=== PATIENT | female | born 1950 | race Caucasian/White ===

== ENCOUNTER → 2016-06-18 | Outpatient (CLI) | payer MEDICARE, OTHER ==
--- NOTE | 2016-06-18 15:37 | RADIOLOGY REPORT PS360 ---
CHEST(2 VIEWS-NOT PORTABLE) HISTORY: Follow-up pneumonia S/P RLL PNEUMONIA, COPD ORDERING PHYSICIAN: Joey Glass MD PATIENT AGE: 66 years COMPARISON: 05/07/2016 FINDINGS: The cardiomediastinal silhouette and pulmonary vascularity are within normal limits. Hyperinflation with attenuation of the peripheral pulmonary vessels consistent COPD again noted. Right basilar infiltrate has improved. There is a small parenchymal opacity now noted in the left upper lobe. While this could be related to an area of scarring, one cannot exclude a developing nodule. Follow-up recommended. If this persists then, CT may be needed for further evaluation.. No acute bony abnormalities. IMPRESSION: 1. COPD with improved right lower lobe infiltrate. 2. Nonspecific irregular parenchymal opacity left upper lobe. Differential diagnosis includes fibrotic change versus developing nodule. Consider follow-up.
== END ==
LOC: RAD 14:28
DX: J44.9 Chronic obstructive pulmonary disease, unspecified (principal); Z87.01 Personal history of pneumonia (recurrent)

== ENCOUNTER 2017-05-02 15:25 | Inpatient (IN) | payer MEDICARE, OTHER ==
[~2017-05-02] VITALS: Ht 162.6 cm; Wt 54.5 kg
--- OUTSIDE RECORDS SUMMARY | 2017-05-02 15:27 | External Medical Summary Rpt | CCD ---
Author Author , AMBER CLARK Address Unknown Phone [email or web address] Purpose Continuity of Care Document - 04-18-2017 through 2016 Problems Code Diagnosis DOS Provider Status Z01.818 ENCOUNTER FOR OTHER PREPROCEDUR AL EXAMINATION Results Labs Lab Lab Date Result Refere Interp Status Commen Order Detail nces retati t Range on CBC w auto diff (04-18-2017 15:53) Blood = 12.8 4.8-10. complet leukocy 017 K/MM3 8 ed lucinda 15:53 count (number /volume ) Automat = 12.6 11.5-17 complet ed 017 % .5 ed erythro 15:53 cyte distrib ution width Red = 5.13 4.2-5.4 complet blood 017 M/mm3 ed cell 15:53 count Blood = 436 142-424 complet platele 017 K/mm3 ed t count 15:53 Automat = 7.5 7.4-10. complet ed 017 fl 4 ed blood 15:53 platele t mean volume neel [place] % = 5.3 % 1.7-9.3 complet 017 ed 15:53 Absolut = 0.7 0.1-1.0 complet e 017 K/mm3 ed monocyt 15:53 e count Automat = 87.6 82.2-97 complet ed 017 fl .8 ed erythro 15:53 cyte mean corpusc ular v Automat = 33.3 31.8-35 complet ed 017 g/dl .4 ed erythro 15:53 cyte mean corpusc ular h Mean = 29.1 27-31.2 complet corpusc 017 pg ed ular 15:53 hemoglo bin (MCH) determ Lymphoc = 20.7 10-50.0 complet yte 017 % ed count, 15:53 blood, automat ed Absolut 1127-2 = 2.6 0.7-4.5 complet e 017 K/mm3 ed lymphoc 15:53 yte count Blood = 14.9 12.2-16 complet hemoglo 017 g/dL .2 ed bin 15:53 measure ment (mass/v olum Blood = 44.9 37.0-47 complet hematoc 017 % .0 ed rit 15:53 (volume fractio n) Granulo = 70.7 37.0-80 complet cyte 017 % .0 ed percent 15:53 age Blood = 9.0 1.8-7.8 complet granulo 017 K/mm3 ed cytes 15:53 automat ed count (numb Automat = 2.2 % 0.1-12. complet ed 017 0 ed blood 15:53 eosinop hils/10 0 leukocy t Automat = 0.3 0.0-0.4 complet ed 017 K/mm3 ed blood 15:53 eosinop hil count Baso % = 1.2 % 0.1-2.0 complet 017 ed 15:53 Automat = 0.2 0-0.2 complet ed 017 K/MM3 ed blood 15:53 basophi l count (count/ vo Basic metabolic panel (04-18-2017 15:53) Serum = 139 136-145 complet sodium 017 mmoL/L ed measure 15:53 ment Serum = 5.5 3.5-5.1 complet potassi 017 mmoL/L ed um 15:53 measure ment Serum = 86 74-106 complet or 017 mg/dL ed plasma 15:53 glucose measure ment (mas Estimat = 71 59- complet ed 017 ML/MIN ed glomeru 15:53 lar filtrat ion rate (GF Comment: REFERENCE RANGE: >60 ML/MIN/1.73 SQUARE METERS Comment: If this patient is -Canadian, then multiply the Comment: result by 1.210. Serum = 0.8 0.55-1. complet or 017 mg/dL 02 ed plasma 15:53 creatin ine measure ment ( Carbon 11-27-2 = 27 21.0-32 complet dioxide 017 mmoL/L .0 ed 15:53 measure ment Serum 2 = 102 98-107 complet or 017 mmoL/L ed plasma 15:53 chlorid e measure ment (mo Serum 2 = 10.4 8.5-10. complet or 017 mg/dL 1 ed plasma 15:53 calcium measure ment (mas Serum 2 = 12 7-18 complet or 017 mg/dL ed plasma 15:53 urea nitroge n measure men
--- OUTSIDE RECORDS SUMMARY | 2017-05-02 15:27 | External Medical Summary Rpt | CCD ---
Author Author , AMBER CLARK Address Unknown Phone [email or web address] Purpose Continuity of Care Document - 04-18-2017 [...] blood 15:53 platele t mean volume neel [place] % = 5.3 % 1.7-9.3 complet 017 [...] SQUARE METERS Comment: If this patient is -[place]i, then multiply the Comment: result by 1.210. [...]
--- OUTSIDE RECORDS SUMMARY | 2017-05-02 15:27 | External Medical Summary Rpt | CCD ---
Author Author , OTILIO CLARK Address Unknown Phone [email or web address] Immunization Name Date Rout CVX Reac Dose Comm Prov Is Faci e tion ent ider Refu lity Give sed n PPV2 09-1 Intr 33 0.5 Hist [facility] No [facility] 3 9-20 amus mL oric ART5 ART5 17 cula al 91 91 r Info rmat ion - Sour ce Unsp ecif ied Infl 09-0 Intr 135 0.5 Hist [facility] No [facility] uenz 8-20 amus mL oric ART5 ART5 a, 16 cula al 91 91 High r Info rmat Dose ion - Sour ce Unsp ecif ied PCV1 09-0 Intr 133 0.5 Hist [facility] No [facility] 3 8-20 amus mL oric ART5 ART5 16 cula al 91 91 r Info rmat ion - Sour ce Unsp ecif ied
--- OUTSIDE RECORDS SUMMARY | 2017-05-02 15:27 | External Medical Summary Rpt | CCD ---
Author Author [employer] Address Unknown Phone Unavailable Purpose Continuity of Care Document - through 2016
--- OUTSIDE RECORDS SUMMARY | 2017-05-02 15:27 | External Medical Summary Rpt | CCD ---
Author Author , OTILIO CLARK Address Unknown Phone [email or web address] Immunization Name Date Rout CVX Reac Dose [...]
--- NOTE | 2017-05-02 16:18 | PHARMACY CLINIC NOTE ---
See Addendum Patient Demographics Patient Demographics Admission date: 05/02/17 Date: 05/02/17 Time: 1616 Allergies Coded Allergies: Penicillins (Severe, TONGUE SWELLS 05/02/17) doxycycline (Mild, I-RASH 05/02/17) HEIGHT- FT: 5 IN: 4.00 VTE General Information Disclaimer The following section includes nursing documentation that has been pulled in for pharmacy review. VTE prophylaxis NQF [id number] VTE prophylaxis ordered? Yes Type of prophylaxis/treatment: Lovenox at 1617
[2017-05-02] MEDS ORDERED: METFORMIN1000 MG PO (16:30)
[2017-05-02] MEDS ORDERED: GEMFIBROZIL600 MG PO (16:31)
[2017-05-02] MEDS ORDERED: LEVOTHYROXIN0.075 M1 PO (16:32)
[2017-05-02] MEDS ORDERED: VENTOLIN H0.09 MG/AC IH (16:33)
[2017-05-02] MEDS ORDERED: CRESTOR10 MG PO (16:33)
[2017-05-02 16:35] VITALS: BP 139/45
[2017-05-02 17:05] VITALS: BP 139/45
[2017-05-02 17:19] LABS: LYMPH # 0.5 K/mm3 (0.7-4.5); LYMPH % 6.5 % (10-50.0)
[2017-05-02 18:35] LABS: NEUTROPHILS 59 % (42-76)
[2017-05-02 19:35] VITALS: BP 124/65
[2017-05-02 20:15] VITALS: BP 124/65
[2017-05-03] VITALS (7 sets, daily range): BP systolic 116–142; BP diastolic 36–76
--- NOTE | 2017-05-03 08:09 | HISTORY AND PHYSICAL REPORT ---
Demographics: Admit date: 05/02/17 Chief complaint: Shortness of breath, cough PRIMARY DIAGNOSIS: COPD EXACERBATION Allergies: Coded Allergies: Penicillins (Severe, TONGUE SWELLS 05/02/17) doxycycline (Mild, I-RASH 05/02/17) History of present illness: History of present illness: 67 year old female with a significant history of COPD was seen at PCP office for cough and shortness of breath. She denies any other ENT symptoms. No fevers. States symptoms have increased over the last week. She was noted to be mildly hypoxic with abnormal lung exam. Patient was direct admitted to acute care for further evaluation. Upon admission, oxygen saturations were noted at 88% RA. CXR showed right upper and right middle lobe pneumonia, as well as a small effusion. Patient was able to produce a sputum sample which is pending. WBC was normal. Creatinine was elevated at 1.6. IV antibiotics, nebulizer treatments and steroids were ordered. Past medical history: Family HX Diabetes Yes CAD No Hypertension No Hyperlipidemia No Cancer No TB No Immunization HX DT/Tetanus Unknown Flu 2016-SN Pneumonia Received In Past TB Test in last year No General CAD? No Angina: No [place]: No Hypertension? No Hyperlipidemia? Yes CHF? No DVT? No PE? No COPD? Yes Asthma? No Anemia? No GERD? No Gastric ulcers? No GI Bleed? No Hernia? No Thyroid Problems? Yes Hypothyroidism? Yes CVA? No Seizures? No Diabetes? Yes Insulin Dependent: No Insulin Pump: No Home FSBS? Yes Renal Insuffiency? No UTI? No Stones? Yes BPH? No GB Disease: No Nephritic Syndrome? No Asplenia? No Hepatitis? No Sickle Cell Disease? No Arthritis? No Migraines? No Cataracts? No Glaucoma? No MRSA? No HIV? No TB? No Anxiety? No Depression? No Cancer? No More? No Past Surgical HX Previous Surgery?Y Hysterectomy-Total Current home meds: Reported Medications METFORMIN HCL (Metformin) 1,000 MG PO BID Gemfibrozil (GEMFIBROZIL 600MG) 600 MG PO DAILY Levothyroxine Sodium (Levothyroxine 0.075MG) 0.075 MG PO DAILY ALBUTEROL (Ventolin Hfa) 1 PUFF IH Q6H6 Rosuvastatin Calcium (Crestor) 10 MG PO QHS Social Hx: Smoking HX Tobacco Yes Type Cigarettes Packs/day 1 1/2 - 2 PACKS Are you/the child exposed to second-hand smoke: No Alcohol Alcohol: No Hx of Drug Use Drug Use? No Patient's support system is good Review of systems: Constitutional malaise, weakness. No: chills, diaphoresis, fever. Eyes No: no symptoms reported. Ears, Nose, Mouth, Throat No no symptoms reported Respiratory see HPI. Cardiovascular No no symptoms reported Gastrointestinal/Abdominal No no symptoms reported Genitourinary No: no symptoms reported. Musculoskeletal No: no symptoms reported. Skin No: no symptoms reported. Neurological No: no symptoms reported. Psychiatric No: no symptoms reported. Exam: Lab data for last 24 hours: Laboratory Tests 05/03/17 0634: POC Glucose 150 H 05/02/17 2046: POC Glucose 155 H 05/02/17 1730: POC Glucose 168 H 05/02/17 1652: Sodium 133 L, Potassium 4.5, Chloride 97 L, Carbon Dioxide 21 L, BUN 29 H, Creatinine 1.6 H, Estimated Creat Clear 29 L, Estimated GFR (MDRD) 32 L, Glucose 145 H, Calcium 10.2 H, WBC 7.7, RBC 4.84, Hgb 14.0, Hct 43.0, MCV 88.8 , RDW 13.0, Plt Count 380, MPV 8.7, Gran % 88.8 H, Gran # 6.9, Total Counted 100, Lymphocytes % 6.5 L, Monocytes % 2.8, Eosinophils % 1.1, Basophils % 0.8, Neutrophils 59, Band Neutrophils 31 H, Lymphocytes (Manual) 5 L, Lymphocytes # 0.5 L, Monocytes (Manual) 3, Monocytes # 0.2, Eosinophils # 0.1, Basophils # 0.1, Myelocytes 2 H, Platelet Estimate NORMAL, Marilu Cells 1+, PUBS MCHC 32.5, MCH 28.9, Mycoplasma pneumon IgM NON-REACTIVE Microbiology 05/02 1855 BLOOD: Anaerobic Blood Culture - RECD 05/02 1855 BLOOD: Aerobic Blood Culture - RECD 05/02 1653 SPUTUM: Organism ID (Sequencing 2)(ANGELA) - ORD 05/02 1652 SPUTUM: Sputum Culture - RES 05/02 1652 SPUTUM: Gram Stain - RES 05/02 1652 BLOOD: Anaerobic Blood Culture - RECD 05/02 1652 BLOOD: Aerobic Blood Culture - RECD Admission vital signs: 1ST Vital Signs Result Date Time Pulse Ox 92 05/02 1635 B/P 139/45 05/02 1635 O2 Delivery ROOM AIR 05/02 1635 Temp 98.1 05/02 1635 Pulse 104 05/02 1635 Resp 22 05/02 1635 O2 Flow Rate 2 05/02 1640 Exam General appearance: alert, active, awake, no acute distress Eyes: anicteric ENT: mucous membranes moist Neck: normal inspection, non-tender Cardiovascular: regular rate & rhythm, no murmur, normal peripheral pulses, no peripheral edema Respiratory: rhonchi and wheezes scattered on right, faint crackles bilateral bases ABD: non-distended, normal bowel sounds, no rebound, soft, no tenderness, no guarding Genitourinary: no dysuria, no hematuria Extremities: moves all Musculoskeletal: equal muscle strength Skin: dry, intact, normal color Neuro: intact, no deficit, normal mood/affect, oriented, speech clear Plan: Problem List 1. COPD exacerbation Assessment/Plan Continue IV antibiotics, steroids and nebulizer treatments. Sputum and blood cultures pending. 2. Pneumonia Assessment/Plan See above 3. Diabetes Assessment/Plan FSBS with sliding scale coverage Plan: See above at 0824
--- NOTE | 2017-05-03 13:01 | RADIOLOGY REPORT PS360 ---
CHEST PORTABLE-PICC PLACEMENT CLINICAL INDICATION: PICC LINE INSERTION ORDERING PHYSICIAN: Jayme Ornelas MD PATIENT AGE: 67 years COMPARISON: 05/02/2017 FINDINGS: Right upper extremity PICC line has been placed. The tip is in the region superior vena cava. The remainder consolidation in the right lower lobe consistent with pneumonia. IMPRESSION: 1. PICC line in good position. 2. Right lower lobe pneumonia unchanged
[2017-05-04] VITALS (8 sets, daily range): BP systolic 103–115; BP diastolic 55–63
--- NOTE | 2017-05-04 08:27 | ACUTE CARE PROGRESS NOTE (QUA) ---
Progress Notes Subjective Date 05/04/17 Time 0825 Note Patient feels about the same, eating well. Lungs are slightly clear, fairly good air entry. Heart rate regular. Abdomen benign. No edema or clubbing. PICC line in good position in the RIGHT antecubital area. Objective Findings Last VS-Temp:98.8 B/P:110/55 Pulse:89 Resp:22 SaO2:90 OXYGEN Last weight lbs:121 oz:5 K.026 Method:Bed Scales Assessment/Plan Problem List 1. COPD exacerbation 2. Pneumonia 3. Diabetes 4. Streptococcal bacteremia Patient condition Improving Plan: continue current care, await sensitivities on Streptococcus, continue current care at this point. This inpt stay is expected to cross 2 MNs from start of care Yes at 0826
--- NOTE | 2017-05-04 09:50 | RADIOLOGY REPORT PS360 ---
CHEST(2 VIEWS-NOT PORTABLE) HISTORY: Follow-up pneumonia pneumonia/effusion ORDERING PHYSICIAN: Jayme Ornelas MD PATIENT AGE: 67 years COMPARISON: 05/03/2017 FINDINGS: Right middle lobe and right lower lobe pneumonia once again noted with small effusion. The consolidation has shown some improvement compared to the previous exam. There however remains moderate opacification of the right middle lobe and right lower lobe laterally. Left lung remains clear. PICC line remains in place. IMPRESSION: Persistent right middle and right lower lobe pneumonia slightly improved with small effusion
[2017-05-05] VITALS (8 sets, daily range): BP systolic 95–109; BP diastolic 48–65
--- NOTE | 2017-05-05 08:04 | ACUTE CARE PROGRESS NOTE (QUA) ---
Progress Notes Subjective Date 05/05/17 Time 0720 Note Patient continues to have some weakness. Shortness of breath and cough have improved. Alert and oriented x3. Rate and rhythm regular. No edema. PUlses 2+ bilaterally. Lung sounds with scattered wheezes throughout, air flow improved, coarse bilateral bases. Abdomen soft and non-tender. Patient/family reports: feeling better Nursing reports: no complaints Objective Findings Last VS-Temp:97.9 B/P:109/58 Pulse:88 Resp:24 SaO2:93 OXYGEN Last weight lbs:121 oz:5 K.026 Method:Bed Scales Reviewed: medications, vital signs, lab results Assessment/Plan Problem List 1. COPD exacerbation 2. Pneumonia 3. Diabetes 4. Streptococcal bacteremia Patient condition Improving Plan: See below. This inpt stay is expected to cross 2 MNs from start of care Yes Comments: Sensitivities reviewed. Continue Levaquin x 14 days. D/c clindamycin as it is resistant. Recheck labs today. PT to evaluate. Will consider D/C home with outpatient Levaquin or to swing bed tomorrow. at 0804
[2017-05-05 08:29] LABS: LYMPH # 0.5 K/mm3 (0.7-4.5); LYMPH % 3.2 % (10-50.0)
[2017-05-05 08:31] LABS: HEMOGLOBIN 10.9 g/dL (12.2-16.2)
[2017-05-05 10:08] LABS: NEUTROPHILS 91 % (42-76)
[2017-05-06] VITALS (8 sets, daily range): BP systolic 106–157; BP diastolic 58–78
--- NOTE | 2017-05-06 07:49 | ACUTE CARE PROGRESS NOTE (QUA) ---
Progress Notes Subjective Date 05/06/17 Time 0748 Note Patient feels somewhat better, but continues to feel short of breath and also reports that her food is sticking just above the epigastric area and she wishes that she could swallow better so that "I could drink some coffee." Lungs have rhonchi and crackles bilaterally, about the same, good air entry. Abdomen is soft, heart rate regular. She is pleasant and alert and without edema. Objective Findings Last VS-Temp:97.3 B/P:129/64 Pulse:72 Resp:18 SaO2:93 OXYGEN Last weight lbs:121 oz:5 K.026 Method:Bed Scales Assessment/Plan Problem List 1. COPD exacerbation 2. Pneumonia 3. Diabetes 4. Streptococcal bacteremia Patient condition Stable Plan: continue current care, continue treatment for Streptococcus sepsis. Check echocardiogram and CT of chest with PE protocol given her persistent hypoxia, check esophagram given her dysphagia. This inpt stay is expected to cross 2 MNs from start of care Yes at 0749
[2017-05-06 07:54] LABS: HEMOGLOBIN 11.7 g/dL (12.2-16.2); LYMPH # 0.7 K/mm3 (0.7-4.5); LYMPH % 3.9 % (10-50.0)
--- NOTE | 2017-05-06 11:22 | RADIOLOGY REPORT PS360 ---
CTA-CHEST HISTORY: COPD, PNEUMONIA,EXACERBATION, R/O PE ORDERING PHYSICIAN: Jayme Ornelas MD PATIENT AGE: 67 years TECHNIQUE: Helical acquisition obtained following the bolus administration of 70 mL of Isovue 370 followed by a saline bolus. Axial, sagittal, and coronal reformatted images are generated and reviewed. COMPARISON: Radiograph of 05/04/2017 FINDINGS: There is no evidence of pulmonary embolus, aortic aneurysm, or aortic dissection. There is an oval soft tissue density to the right of the upper thoracic esophagus measuring 2.5 cm longitudinal, 1.6 cm AP, and 1.1 cm transverse. This is causing some mild compression upon the right aspect of the upper thoracic esophagus and may be related to an enlarged lymph node. Other smaller lymph nodes are present in the mediastinum. Coronary artery calcifications are noted. Normal heart size without evidence of pericardial effusion. There are moderate to severe centrilobular emphysematous changes. There is a small right pleural effusion. There is consolidation of the right upper lobe posteriorly and laterally as well as the right middle lobe laterally consistent with pneumonia. Consolidation/atelectasis present in the right lung base posteriorly. The left lung is clear of acute infiltrate. There is a 5 mm nodule in the left upper lobe nonspecific. No acute bony anomalies are evident. Upper abdominal images are unremarkable. IMPRESSION: 1. No evidence of pulmonary embolus or aortic aneurysm. 2. Soft tissue density along the right aspect of the upper thoracic esophagus may be related to an enlarged lymph node. 3. Right upper and right middle lobe pneumonia with small right effusion. 4. Centrilobular emphysema with right basilar atelectasis and nonspecific 5 mm nodule in the left upper lobe.
--- NOTE | 2017-05-06 12:50 | RADIOLOGY REPORT PS360 ---
PROCEDURE: 2-D M-mode and color Doppler study INDICATIONS FOR THE TEST: Chest pain COPDX Heart Murmur Tobacco SmokingX Palpitations Fatigue Syncope Edema Hypertension Diabetes MellitusX Rheumatic Fever SOBXDOE XObesity Hyperlipidemia Family History HD Additional History TDS SECONDARY TO COPD PATIENT INFORMATION HEIGHT: 64 WEIGHT:121 GENDER: Female B/P:109/58 2-D/M-MODE INTERPRETATION: 2-D MEASUREMENTS OBSERVED VALUES IN CMS Right Ventricular Dimension (RVDd) 2.8 Interventricular Septum (Thickness)(IVsd) .8 Left Ventricular Internal Dimensions(LVIDd) 4.4 Left Ventricular Posterior Wall (Thickness)(LVPWd) .8 Aortic Root 2.9 Aortic Cusp Separation 2.0 Left Atrial Dimensions (LAD) 2.8 2D 1. Left atrium is qualitatively mildly enlarged, left ventricle is normal size, there is no concentric left ventricular hypertrophy, there is abnormal septal motion. Visually estimated ejection fraction 55%. 2. The right atrium and right ventricle are moderately enlarged, contractility of the right ventricle is moderately reduced. 3. The aortic valve is minimally thickened and fibrosed. 4. The mitral and tricuspid valve leaflets are minimally thickened. 5. No significant pericardial effusion noted 6. Pulmonic valve is poorly visualized. DOPPLER INTERROGATION: Doppler interrogation of the aortic, mitral and tricuspid valvular presence of mild mitral and tricuspid regurgitation, tricuspid and jet velocity insufficient for acquisition of the right ventricular systolic pressure, diastolic parameters are inconclusive. CONCLUSION: 1. Technically difficult study because of the patient's factor and poor acoustic windows. 2. Mildly left atrium, normal left ventricular size, visually estimated ejection fraction 55% with no obvious regional wall motion abnormality, there is abnormal septal motion. 3. Moderately enlarged right ventricle with moderate reduction in the right ventricular contractility. 4. Mild mitral and tricuspid regurgitation. 5. No significant pericardial effusion noted.
--- NOTE | 2017-05-06 14:24 | RADIOLOGY REPORT PS360 ---
EXAM: Barium swallow/esophagram. INDICATION: Food sticking in chest ORDERING PHYSICIAN: Jayme Ornelas MD PATIENT AGE: 67 years COMPARISON: None TECHNIQUE: In the upright position the patient was observed to swallow barium in both the AP and lateral view. The cervical esophagus was examined under fluoroscopy with images obtained. The patient was then placed prone in the right anterior oblique position and was observed to swallow barium with Valsalva technique . FLUOROSCOPY TIME: 1 minute FINDINGS: There was no evidence of aspiration. There was normal peristalsis. No filling defects or mucosal abnormalities. No masses or strictures. No hiatal hernia evident. IMPRESSION: Negative barium swallow.
[2017-05-07] VITALS (7 sets, daily range): BP systolic 102–132; BP diastolic 50–64
--- NOTE | 2017-05-07 08:02 | ACUTE CARE PROGRESS NOTE (QUA) ---
Progress Notes Subjective Date 05/07/17 Time 0801 Note Patient feels a little better than yesterday, continues to be fatigued, occasional coughing. On exam she is pleasant and talkative, lungs have rhonchi in both bases, no wheezing. Heart rate regular, abdomen soft. I reviewed patient's echocardiogram and esophagram-both of which were essentially normal, along with her CT scan which showed no evidence of pulmonary embolism. Her labs this morning show increasing leukocytosis. Other labs are unremarkable. Objective Findings Last VS-Temp:98.1 B/P:132/59 Pulse:82 Resp:20 SaO2:90 OXYGEN Last weight lbs:121 oz:0 K.885 Method:Bed Scales Assessment/Plan Problem List 1. COPD exacerbation 2. Pneumonia 3. Diabetes 4. Streptococcal bacteremia Patient condition Improving Plan: continue current care, treat constipation per patient's report with Dulcolax. Given leukocytosis I will stop her steroids given her lack of wheezing , I also like to add double coverage for her pneumococcal sepsis given the leukocytosis and I will start ceftriaxone. I will ask pharmacy to check her pharmacy records for cephalosporin administration as an outpatient given her penicillin ALLERGY. This inpt stay is expected to cross 2 MNs from start of care Yes at 0802
[2017-05-08] VITALS (8 sets, daily range): BP systolic 109–132; BP diastolic 56–69
[2017-05-08 07:02] LABS: HEMOGLOBIN 12.4 g/dL (12.2-16.2); LYMPH # 1.6 K/mm3 (0.7-4.5); LYMPH % 8.5 % (10-50.0)
[2017-05-08 07:17] LABS: NEUTROPHILS 79 % (42-76)
--- NOTE | 2017-05-08 07:35 | ACUTE CARE PROGRESS NOTE (QUA) ---
Progress Notes Subjective Date 05/08/17 Time 0734 Note Patient feels about the same, no congestion, minimal cough, Lungs are clear in the anterior yu, she feels slightly distended in her abdomen and feels constipated. Heart rate regular. Objective Findings Last VS-Temp:98.7 B/P:114/67 Pulse:83 Resp:24 SaO2:94 OXYGEN Last weight lbs:120 oz:4 K.544 Method:Bed Scales Assessment/Plan Problem List 1. COPD exacerbation 2. Pneumonia 3. Diabetes 4. Streptococcal bacteremia Patient condition Improving Plan: continue current care, constipation treated as noted. Continue double coverage for pneumococcal sepsis and pneumonia. This inpt stay is expected to cross 2 MNs from start of care Yes at 0734
--- NOTE | 2017-05-08 11:24 | ACUTE CARE PROGRESS NOTE (QUA) ---
Progress Notes Subjective Date 05/08/17 Time 1123 Assessment/Plan Problem List 1. COPD exacerbation 2. Pneumonia 3. Diabetes 4. Streptococcal bacteremia This inpt stay is expected to cross 2 MNs from start of care Yes Antibiotic Stewardship (2) Current Culture Results Microbiology 05/02 1855 BLOOD: Anaerobic Blood Culture - RES STREPTOCOCCUS PNEUMONIAE 05/02 1855 BLOOD: Aerobic Blood Culture - RES 05/02 1653 SPUTUM: Organism ID (Sequencing 2)(ANGELA) - CAN Cancelled: Auto-cancelled after 3 days. 05/02 1652 SPUTUM: Sputum Culture - COMP STREPTOCOCCUS PNEUMONIAE YEAST 05/02 1652 SPUTUM: Gram Stain - COMP Infxn that will respond? Yes Right drug,dose,and route? Yes More targeted antbx? No at 1123
[2017-05-09 04:22] VITALS: BP 141/69
[2017-05-09 08:00] VITALS: BP 111/53
--- NOTE | 2017-05-09 08:19 | DISCHARGE SUMMARY STANDARD ---
Demographics Admit date: 05/02/17 Discharge date: 05/09/17 History of present illness History of present illness 67 year old female with a significant history of COPD was seen at PCP office for cough and shortness of breath. She denies any other ENT symptoms. No fevers. States symptoms have increased over the last week. She was noted to be mildly hypoxic with abnormal lung exam. Patient was direct admitted to acute care for further evaluation. Upon admission, oxygen saturations were noted at 88% RA. CXR showed right upper and right middle lobe pneumonia, as well as a small effusion. Patient was able to produce a sputum sample which is pending. WBC was normal. Creatinine was elevated at 1.6. IV antibiotics, nebulizer treatments and steroids were ordered. Hospital Course Hospital Course: Patient was admitted, initially placed on intravenous Levaquin. She tolerated this well and improved slightly, blood cultures quickly returned showing Streptococcus pneumonia and all of her bottles, fortunately pansensitive to quinolones and cephalosporins. She also grew Streptococcus pneumonia, identical susceptibility patterns, from her sputum. She continued to have an oxygen requirement and as a result of this workup for PE and cardiac issues was undertaken with CT scan and echocardiogram respectively which were really nonrevealing. Given the significant nature of her bacteremia and pneumonia ceftriaxone was added for double coverage which seemed to improve her situation and her room air saturation stabilized. She continued to have a minimal oxygen requirement. This morning she was deemed stable enough to transfer to swing bed to finish out a total of 2 weeks of intravenous antibiotics. Of note she had a PICC line placed during her admission without complications. Exam on transfer to swing bed revealed she's alert. Feels better, pleasant and talkative, minimal thrush in the oral pharynx. Lungs have minimal rhonchi in the bases but good air movement, she's wearing 2 L nasal cannula oxygen. Heart rate regular with previously noted systolic ejection murmur, abdomen soft and nontender, good tissue perfusion and normal neurologic exam. Prognosis and swing bed is good, rehab potential is good, mental status is good. Discharge diagnoses Problem List 1. COPD exacerbation 2. Pneumonia 3. Diabetes 4. Streptococcal bacteremia Medications Medications: Discharge meds are as noted. Follow up Follow up in office in: 2 DAYS with: Jayme Ornelas MD at [id number]
[2017-05-09 11:53] VITALS: BP 111/53
== END 2017-05-09 12:17 | disposition swing bed (61) | DRG 190 ==
LOC: 2ND 15:25
PROVIDERS: Internal Medicine; Internal Medicine Adolescent Medicine
PROC: 05HB33Z Insertion of Infusion Device into Right Basilic Vein, Percutaneous Approach (ICD-10-PCS; principal; 2017-05-09)
DX: J44.0 Chronic obstructive pulmonary disease with (acute) lower respiratory infection (principal); J18.9 Pneumonia, unspecified organism; R78.81 Bacteremia; J44.1 Chronic obstructive pulmonary disease with (acute) exacerbation; Z72.0 Tobacco use; E11.9 Type 2 diabetes mellitus without complications
CPT/HCPCS: C1751; J1956; J2405; Q9967

== ENCOUNTER → 2017-05-02 | Outpatient (CLI) | payer MEDICARE, OTHER ==
[~2017-05-02] MED LIST: CRESTOR10 MG PO; GEMFIBROZIL600 MG PO; LEVOTHYROXIN0.075 M1 PO; METFORMIN1000 MG PO; VENTOLIN H0.09 MG/AC IH
--- NOTE | 2017-05-02 14:57 | RADIOLOGY REPORT PS360 ---
CHEST(2 VIEWS-NOT PORTABLE) HISTORY: RT CHEST PAIN, FEVER,COPD ORDERING PHYSICIAN: Joey Glass MD PATIENT AGE: 67 years COMPARISON: 06/18/2016 FINDINGS: The cardiomediastinal silhouette and pulmonary vascularity are within normal limits. There is dense consolidation within the right middle lobe consistent with pneumonia. There is also mild consolidation in the right upper lobe anteriorly consistent with pneumonia. There is a small right pleural effusion. Left lung is clear. There is hyperinflation with attenuation of the peripheral pulmonary vessels consistent with obstructive chronic bronchitis. No acute bony anomalies. IMPRESSION: 1. Right upper and right middle lobe pneumonia with small effusion. 2. COPD.
== END ==
LOC: RAD 14:31
DX: R07.89 Other chest pain (principal); R50.9 Fever, unspecified; J44.1 Chronic obstructive pulmonary disease with (acute) exacerbation